=== PATIENT | female | born 1990 | race Caucasian/White ===

== ENCOUNTER 2024-05-29 11:35 | Emergency (ER) | payer SELFPAY ==
--- NOTE | 2024-05-29 11:39 | ED.URI ---
HPI - URI/Sore Throat General Chief Complaint: Upper Respiratory Infection Stated Complaint: THROAT PAIN Time Seen by Provider: 05/29/24 11:38 Source: patient Mode of arrival: ambulatory Limitations: no limitations History of Present Illness HPI Narrative: July is a 33-year-old female who presents to clinic today with complaints of throat pain x 4 days. She reports it feels like there is a lump in her throat and has some mild pain with swallowing. She also states she has had some regurgitation but denies nausea, vomiting, or heartburn. 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 States she also has a histamine intolerance. Has been discussing this with her primary care provider and has been taking Benadryl for her symptoms without relief. She denies any difficulty swallowing, shortness of breath, cough, fevers, or chills. MD elicited complaint: sore throat and nasal congestion Related Data Home Medications Medication Instructions Recorded Confirmed T3 Compound 1 tab-cap PO DAILY 05/29/24 05/29/24 levothyroxine 112 mcg tablet 112 mcg PO DAILY 05/29/24 05/29/24 Allergies Allergy/AdvReac Type Severity Reaction Status Date / Time No Known Allergies Allergy Unverified 05/29/24 11:45 Review of Systems Review of Systems: Pertinent positives per HPI. Patient denies any fever, chills, rash, headache, visual changes, dizziness, cough, shortness of breath, chest pain, palpitations, nausea, vomiting, diarrhea, constipation, abdominal pain, or any urinary issues. [facility] Family History Family History Other Cerebrovascular accident Diabetes mellitus Family history of cardiovascular disease Social History Social History Smoking status: Never smoker Alcohol intake: never Comments At the time of my signature, I reviewed and agree with the nursing past medical, surgical, social, and family history. There is no relevant family history pertinent to the patient complaint. Exam Narrative: General: Well-developed, well nourished, in no apparent distress Head: Normocephalic, atraumatic Eyes: Pupils equally round and reactive to light bilaterally, EOM intact, sclera and conjunctive clear, no discharge, lids normal Nose: Nares patent, no discharge, no inflammation, no sinus tenderness. Mouth: Oral pharynx without lesions or masses, good dentition, MMM. Neck: Supple, thyroid surgically absent, no enlargement of anterior or posterior cervical nodes, no tracheal masses or deviation. Cardio: Regular rate and rhythm, s1 and s2 normal, no murmur appreciated. Resp: Clear to auscultation bilaterally, no rhonchi, rales, wheezing or rubs Course Course Emergency Course: Portions of this record may have been created with voice recognition software. Level of Care: Express Care Visit Vital Signs Vital signs: Vital signs reviewed MDM - URI/Sore Throat MDM Narrative Medical decision making narrative: At the time of visit patient is resting comfortably on the exam table. Patient appears to be nontoxic. Plan: I suspect patient has a globus sensation. She has history of acid reflux. Will send a prescription for a trial of Pepcid for possible acid reflux causing symotoms. Will also send a prescription for prednisone in the event that Pepcid does not relieve her symptoms as this will help with inflammation and improve histamine reaction. Recommend follow-up with her primary care provider. Supportive measures were discussed with the patient and they voiced understanding discharge instructions and agrees to treatment plan. Return precautions reviewed Differential Diagnosis Differential diagnosis: Likely upper respiratory infection, sinusitis, viral infection, influenza, pharyngitis and other (GERD) Discharge Plan Discharge Clinical Impression:
[2024-05-29 11:48] VITALS: BP 134/94; PULSE 105; RESP 20; TEMP 36.9; O2SAT 100
== END 2024-05-29 12:09 | disposition home or self-care (01) ==
PROVIDERS: Emergency Provider Nurse Practitioner Family
DX: R09.A2 Foreign body sensation, throat (principal); E89.0 Postprocedural hypothyroidism
CPT/HCPCS: 99213; G0463